=== PATIENT | male | born 1980 | race Caucasian/White ===

== ENCOUNTER 2017-06-13 22:09 | Emergency (ER) | payer OTHER ==
[2017-06-14 01:33] VITALS: BP 134/82
== END 2017-06-14 01:33 | disposition home or self-care (01) ==
LOC: ED 22:09
DX: S43.202A Unspecified subluxation of left sternoclavicular joint, initial encounter (principal); V89.9XXA Person injured in unspecified vehicle accident, initial encounter; Y93.55 Activity, bike riding; Y99.8 Other external cause status; Y92.89 Other specified places as the place of occurrence of the external cause
CPT/HCPCS: Q0092